=== PATIENT | female | born 1940 | race Caucasian/White ===

== ENCOUNTER 2019-04-15 14:12 | Emergency (ER) | payer MEDICARE, OTHER ==
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
[2019-04-15 14:41] LABS: ABS Basophils 0.1 10^3/ul (0-0.2); ABS Eosinophils 0.5 10^3/ul (0-0.6); ABS Lymphocytes 2.6 10^3/ul (1.0-4.8); ABS Monocytes 0.9 10^3/ul (0-0.8); ABS Neutrophils 6.5 10^3/ul (1.5-7.7); Eosinophil % 4.4 %; Hematocrit 33 % (35-47); Lymphocyte % 24.7 %; Mean Corpuscular HGB Conc 33 g/dL (31-36); Mean Corpuscular Hemoglobin 28 pg (27-31); Mean Corpuscular Volume 83 fL (80-97); Mean Platelet Volume 7.1 fL (7.4-10.4); Nucleated Red Blood Cells % 0.1; Platelet Count 295 10^3/uL (150-450); Red Blood Count 3.99 10^6 /uL (3.70-4.87); Red Cell Distribution Width 16 % (10-15); White Blood Count 10.5 10^3/uL (3.5-10.8)
[2019-04-15 14:58] LABS: Albumin 3.5 g/dL (3.2-5.2); Albumin/Globulin Ratio 1.2 (1-3); BUN/Creatinine Ratio 18.8 (8-20); C Reactive Protein 4.32 mg/L (<8.01); Calcium 9.8 mg/dL (8.6-10.3); EGFR African American 99.8 (>60); EGFR Non-African American 82.5 (>60); Globulin 2.9 g/dL (2-4); Potassium 4.4 mmol/L (3.5-5.0); Total Bilirubin 0.3 mg/dL (0.2-1.0); Total Protein 6.4 g/dL (6.4-8.9)
[2019-04-15 20:03] VITALS: BP 105/59
== END 2019-04-15 17:10 | disposition home or self-care (01) ==
LOC: ED 14:12
DX: L97.319 Non-pressure chronic ulcer of right ankle with unspecified severity (principal); Z87.891 Personal history of nicotine dependence; Z96.651 Presence of right artificial knee joint; Z79.01 Long term (current) use of anticoagulants; Z79.899 Other long term (current) drug therapy; Z88.6 Allergy status to analgesic agent; Z88.4 Allergy status to anesthetic agent; Z88.8 Allergy status to other drugs, medicaments and biological substances
CPT/HCPCS: 36415; 80053; 85025; 86140; 99283

== ENCOUNTER 2020-03-27 14:44 | Inpatient (IN) ==
[2020-03-27 16:42] LABS: ABS Basophils 0.1 10^3/ul (0-0.2); ABS Eosinophils 0.4 10^3/ul (0-0.6); ABS Lymphocytes 1.5 10^3/ul (1.0-4.8); ABS Monocytes 1.1 10^3/ul (0-0.8); ABS Neutrophils 10.2 10^3/ul (1.5-7.7); Eosinophil % 3.1 %; Hematocrit 35 % (35-47); Lymphocyte % 10.9 %; Mean Corpuscular HGB Conc 31 g/dL (31-36); Mean Corpuscular Hemoglobin 24 pg (27-31); Mean Corpuscular Volume 75 fL (80-97); Mean Platelet Volume 7.1 fL (7.4-10.4); Platelet Count 332 10^3/uL (150-450); Red Cell Distribution Width 18 % (10-15); White Blood Count 13.3 10^3/uL (3.5-10.8)
[2020-03-27 16:54] LABS: ALT 10 U/L (7-52); AST 13 U/L (13-39); Albumin/Globulin Ratio 1.1 (1-3); Alkaline Phosphatase 120 U/L (34-104); Anion Gap 9 mmol/L (2-11); BUN/Creatinine Ratio 16.2 (8-20); Blood Urea Nitrogen 12 mg/dL (6-24); C Reactive Protein 13.68 mg/L (<8.01); CO2 Carbon Dioxide 25 mmol/L (22-32); Calcium 10.1 mg/dL (8.6-10.3); Chloride 101 mmol/L (101-111); EGFR African American 91.8 (>60); EGFR Non-African American 75.9 (>60); Globulin 3.5 g/dL (2-4); Glucose 102 mg/dL (70-100); Lipase < 10 U/L (11.0-82.0); Potassium 4.5 mmol/L (3.5-5.0); Sodium 135 mmol/L (135-145); Total Protein 7.5 g/dL (6.4-8.9)
[2020-03-27] MEDS ORDERED: Morphine 2 MG/ML SYRINGE IV ONE ×2 (17:26→21:42)
[2020-03-27 18:14] LABS: Urine Appearance Cloudy; Urine Bilirubin Negative (Negative); Urine Blood 1+ (Negative); Urine Color Straw; Urine Glucose Negative (Negative); Urine Ketones Negative (Negative); Urine Nitrite Negative (Negative); Urine Protein Negative (Negative); Urine Specific Gravity 1.004 (1.010-1.030); Urine Urobilinogen Negative (Negative)
[2020-03-27 18:39] LABS: Urine Bacteria Absent (Absent); Urine Red Blood Cell Trace(0-2/hpf) (Absent); Urine Squamous Epithelial Cell Present (Absent); Urine White Blood Cell 3+(>20/hpf) (Absent)
[2020-03-27] MEDS ORDERED: Iodixanol (CONTRAST) 320 MG/ML 100 ML SDV IV ONE (19:21)
[2020-03-27] MEDS ORDERED: cefTRIAXone 1 gm/50 mL NS BAG 1 GM/50 ML BAG IV ONE (19:55)
[2020-03-27 20:13] LABS: % Iron Saturation 4 % (15-55); Iron 21 ug/dL (50-212); Total Iron Binding Capacity 490 mcg/dL (250-450); Transferrin 350 mg/dL (203-362); Unsaturated Iron Binding < 475 ug/dL
[2020-03-27 20:33] LABS: Ferritin 14.4 ng/mL (11-307)
[2020-03-27] MEDS ORDERED: Ondansetron 4 mg VIAL 2 MG/ML 2 ml VIAL IV PRN (20:37)
[2020-03-27] MEDS ORDERED: Iron Sucrose 200 MG in NS 0.9% 100 ml BAG 100 ML IVPB ONE (20:46)
[2020-03-27] MEDS ORDERED: MENTHOL TOPICAL PRN (20:56)
[2020-03-27] MEDS ORDERED: Dextrose 50% Syringe 50 ml 25 GM/50 ML SYRINGE IV PUSH PRN (20:58)
[2020-03-27] MEDS ORDERED: Azithromycin 500 mg/250 ml NS 500 MG/250 ML BAG IVPB ONE (21:00)
[2020-03-27] MEDS ORDERED: Pantoprazole Packet (NF) 40 MG GRANPKT.DR PO SCH (21:00)
[2020-03-27] MEDS ORDERED: Lactated Ringers 1000 ml BAG 1,000 ML IV SCH (22:00)
[2020-03-27] MEDS ORDERED: Piperacillin/Tazobac ADVAN 3.375 GM in NS 0.9% 100 ml BAG 100 ML IV ONE (22:42)
[2020-03-27] MEDS ORDERED: Zosyn per Pharmacy NOTE FOLLOW UP SCH (23:00)
[2020-03-28 07:05] LABS: Hematocrit 29 % (35-47); Mean Corpuscular HGB Conc 31 g/dL (31-36); Mean Corpuscular Hemoglobin 23 pg (27-31); Mean Corpuscular Volume 74 fL (80-97); Mean Platelet Volume 6.3 fL (7.4-10.4); Platelet Count 294 10^3/uL (150-450); Red Blood Count 3.88 10^6 /uL (3.70-4.87); Red Cell Distribution Width 18 % (10-15); White Blood Count 11.5 10^3/uL (3.5-10.8)
[2020-03-28 07:19] LABS: BUN/Creatinine Ratio 12.7 (8-20); Calcium 9.3 mg/dL (8.6-10.3); EGFR African American 96.3 (>60); EGFR Non-African American 79.6 (>60)
[2020-03-28] MEDS ORDERED: ZOSYN 3.375 GM Q8H per EXTENDED INFUSION IV SCH (07:30)
[2020-03-28 08:09] LABS: ABS Basophils 0.1 10^3/ul (0-0.2); ABS Eosinophils 0.1 10^3/ul (0-0.6); ABS Neutrophils 9.3 10^3/ul (1.5-7.7); Eosinophil % 1.2 %
[2020-03-28 08:10] LABS: Microcytosis 2+
[2020-03-28] MEDS ORDERED: Iron Sucrose 200 MG in NS 0.9% 100 ml BAG 100 ML IVPB ONE (09:00)
[2020-03-28] MEDS: Pantoprazole VIAL 40 MG VIAL IV SCH ×2 (09:31→21:50)
[2020-03-28] MEDS ORDERED: NS 0.9% 1000 ml BAG 1,000 ML IV SCH (18:45)
[2020-03-28] MEDS ORDERED: cefTRIAXone 1 gm/50 mL NS BAG 1 GM/50 ML BAG IVPB SCH (21:00)
[2020-03-28] MEDS: ZOSYN 3.375 GM Q8H per EXTENDED INFUSION IV SCH (21:50)
[2020-03-29] MEDS: ZOSYN 3.375 GM Q8H per EXTENDED INFUSION IV SCH ×3 (03:48→22:07)
[2020-03-29 06:23] LABS: Hematocrit 28 % (35-47); Hemoglobin 8.7 g/dL (12.0-16.0); Mean Corpuscular HGB Conc 31 g/dL (31-36); Mean Corpuscular Hemoglobin 23 pg (27-31); Mean Corpuscular Volume 75 fL (80-97); Mean Platelet Volume 7.1 fL (7.4-10.4); Platelet Count 278 10^3/uL (150-450); Red Blood Count 3.69 10^6 /uL (3.70-4.87); Red Cell Distribution Width 18 % (10-15); White Blood Count 11.9 10^3/uL (3.5-10.8)
[2020-03-29 06:36] LABS: BUN/Creatinine Ratio 17.2 (8-20); Calcium 9.5 mg/dL (8.6-10.3); EGFR African American 108.6 (>60); EGFR Non-African American 89.7 (>60); Potassium 3.8 mmol/L (3.5-5.0)
[2020-03-29] MEDS ORDERED: Iron Sucrose 200 MG in NS 0.9% 100 ml BAG 100 ML IVPB ONE (09:00)
[2020-03-29] MEDS ORDERED: fentaNYL 100 mcg/2 ml 50 MCG/ML VIAL ONE (11:04)
[2020-03-29] MEDS ORDERED: Midazolam 10 mg/10 ml VIAL 1 mg/ml 10 ml VIAL (10 mg) ONE (11:05)
[2020-03-29] MEDS: Pantoprazole VIAL 40 MG VIAL IV SCH ×2 (13:35→21:59)
[2020-03-30] MEDS: ZOSYN 3.375 GM Q8H per EXTENDED INFUSION IV SCH ×2 (05:36→12:52)
[2020-03-30 06:59] LABS: ABS Basophils 0.1 10^3/ul (0-0.2); ABS Eosinophils 0.5 10^3/ul (0-0.6); ABS Lymphocytes 1.1 10^3/ul (1.0-4.8); ABS Monocytes 0.9 10^3/ul (0-0.8); ABS Neutrophils 5.4 10^3/ul (1.5-7.7); Eosinophil % 6.8 %; Hematocrit 28 % (35-47); Lymphocyte % 14.1 %; Mean Corpuscular HGB Conc 32 g/dL (31-36); Mean Corpuscular Hemoglobin 24 pg (27-31); Mean Corpuscular Volume 74 fL (80-97); Mean Platelet Volume 6.9 fL (7.4-10.4); Platelet Count 288 10^3/uL (150-450); Red Blood Count 3.76 10^6 /uL (3.70-4.87); Red Cell Distribution Width 18 % (10-15)
[2020-03-30 10:30] VITALS: BP 94/53
[2020-03-30] MEDS: Pantoprazole VIAL 40 MG VIAL IV SCH (11:44)
== END 2020-03-30 15:05 | DRG 391 ==
LOC: ED 14:44 → MED 14:44
PROVIDERS: ADMIT Internal Medicine; ATTEND Internal Medicine

== ENCOUNTER 2021-11-02 16:19 | Observation (INO) ==
[2021-11-02 17:10] LABS: ABS Basophils 0.1 10^3/ul (0-0.2); ABS Eosinophils 0.6 10^3/ul (0-0.6); Hematocrit 42 % (35-47); Hemoglobin 13.5 g/dL (12.0-16.0); Lymphocyte % 19.1 %; Mean Corpuscular HGB Conc 33 g/dL (31-36); Mean Corpuscular Hemoglobin 31 pg (27-31); Mean Corpuscular Volume 94 fL (80-97); Nucleated Red Blood Cells % 0.1; Platelet Count 403 10^3/uL (150-450); Red Blood Count 4.44 10^6 /uL (3.70-4.87); Red Cell Distribution Width 13 % (10-15); White Blood Count 15.7 10^3/uL (3.5-10.8)
[2021-11-02 17:44] LABS: Albumin 3.7 g/dL (3.2-5.2); Albumin/Globulin Ratio 1.2 (1-3); Calcium 10.1 mg/dL (8.6-10.3); Globulin 3.2 g/dL (2-4); Potassium 4.2 mmol/L (3.5-5.0); Total Bilirubin 0.4 mg/dL (0.2-1.0); Total Protein 6.9 g/dL (6.4-8.9); eGFR CKD-EPI 93.4 (>60)
[2021-11-02 18:50] LABS: High Sensitivity Troponin 1 Hr 5 pg/mL (<15)
[2021-11-02] MEDS ORDERED: cefTRIAXone 1 gm/50 mL D5W 1 GM/50 ML BAG IV ONE (21:52)
[2021-11-03] MEDS ORDERED: Ondansetron 4 mg VIAL 2 MG/ML 2 ml VIAL IV PRN (00:54)
[2021-11-03 02:04] LABS: Magnesium 1.2 mg/dL (1.9-2.7)
[2021-11-03] MEDS ORDERED: Magnesium Sulf 4 GM/100 ML IV 4,000 MG/100 ML BAG IVPB ONE ×2 (02:30→17:34)
[2021-11-03] MEDS ORDERED: metroNIDAZOLE IV 500 MG/100ML 500 MG/100 ML BAG IVPB SCH (03:00)
[2021-11-03] MEDS ORDERED: Acetaminophen IV 1 GM/100ML 100 ML IV PRN (03:58)
[2021-11-03] MEDS ORDERED: Midazolam 10 mg/10 ml VIAL 1 mg/ml 10 ml VIAL (10 mg) ONE (07:15)
[2021-11-03] MEDS ORDERED: metroNIDAZOLE IV 500 MG/100ML - ED ONCE IVPB ONE (08:00)
[2021-11-03] MEDS ORDERED: Pantoprazole VIAL 40 MG VIAL IV SCH (09:00)
[2021-11-03 09:14] LABS: INR 1.49 (0.86-1.15)
[2021-11-03 09:18] LABS: ABS Basophils 0.1 10^3/ul (0-0.2); ABS Eosinophils 0.1 10^3/ul (0-0.6); ABS Lymphocytes 1.7 10^3/ul (1.0-4.8); ABS Monocytes 1.1 10^3/ul (0-0.8); ABS Neutrophils 14.4 10^3/ul (1.5-7.7); Eosinophil % 0.5 %; Hematocrit 40 % (35-47); Hemoglobin 13.2 g/dL (12.0-16.0); Lymphocyte % 9.6 %; Mean Corpuscular HGB Conc 33 g/dL (31-36); Mean Corpuscular Hemoglobin 31 pg (27-31); Mean Corpuscular Volume 93 fL (80-97); Platelet Count 320 10^3/uL (150-450); Red Blood Count 4.26 10^6 /uL (3.70-4.87); Red Cell Distribution Width 13 % (10-15); White Blood Count 17.3 10^3/uL (3.5-10.8)
[2021-11-03 09:30] LABS: Calcium 9.9 mg/dL (8.6-10.3); Magnesium 1.1 mg/dL (1.9-2.7); Potassium 4.1 mmol/L (3.5-5.0)
[2021-11-03] MEDS: metroNIDAZOLE IV 500 MG/100ML 500 MG/100 ML BAG IVPB SCH ×2 (17:10→23:20)
[2021-11-03] MEDS ORDERED: cefTRIAXone 1 gm/50 mL NS BAG 1 GM/50 ML BAG IVPB SCH (22:00)
[2021-11-03 22:58] LABS: Urine Appearance Clear; Urine Color Yellow
[2021-11-03 22:59] LABS: Urine Bilirubin 1+ (Small) (Negative); Urine Glucose Negative (Negative); Urine Ketones 4+ (>=160mg/dL) (Negative); Urine Nitrite Negative (Negative); Urine Protein Negative (Negative); Urine Urobilinogen 0.2 (Negative) (Negative); Urine pH 5.5 (5.0-9.0)
[2021-11-04 00:14] LABS: Urine Bacteria Absent (Absent); Urine Red Blood Cell 2+(6-10/hpf) (Absent); Urine Squamous Epithelial Cell Present (Absent); Urine White Blood Cell 3+(>20/hpf) (Absent)
[2021-11-04 05:33] LABS: ABS Basophils 0.1 10^3/ul (0-0.2); ABS Eosinophils 0.6 10^3/ul (0-0.6); ABS Lymphocytes 1.6 10^3/ul (1.0-4.8); ABS Monocytes 1.1 10^3/ul (0-0.8); ABS Neutrophils 10.8 10^3/ul (1.5-7.7); Eosinophil % 3.9 %; Hematocrit 35 % (35-47); Hemoglobin 12.2 g/dL (12.0-16.0); Lymphocyte % 11.4 %; Mean Corpuscular HGB Conc 34 g/dL (31-36); Mean Corpuscular Hemoglobin 32 pg (27-31); Mean Corpuscular Volume 93 fL (80-97); Platelet Count 267 10^3/uL (150-450); Red Blood Count 3.82 10^6 /uL (3.70-4.87); Red Cell Distribution Width 13 % (10-15); White Blood Count 14.1 10^3/uL (3.5-10.8)
[2021-11-04 05:49] LABS: Calcium 9.1 mg/dL (8.6-10.3); Magnesium 3.1 mg/dL (1.9-2.7); Potassium 3.5 mmol/L (3.5-5.0); eGFR CKD-EPI 94.8 (>60)
[2021-11-04] MEDS: metroNIDAZOLE IV 500 MG/100ML 500 MG/100 ML BAG IVPB SCH (09:10)
[2021-11-04] MEDS ORDERED: Polyethylene Glycol 3350 17 GM PACKET PO SCH (11:00)
[2021-11-04 15:35] VITALS: BP 115/55
[2021-11-04] MEDS ORDERED: cefTRIAXone 1 gm/50 mL D5W 1 GM/50 ML BAG IV SCH (22:00)
== END 2021-11-04 16:30 ==
LOC: EDHOLD 16:19 → ED 16:19 → SUATTDRO 11-03 00:54 → MED 11-03 10:58
PROVIDERS: ADMIT Student in an Organized Health Care Education/Training Program; ATTEND Internal Medicine

== ENCOUNTER 2021-12-17 15:42 | Inpatient (IN) ==
[2021-12-17 16:33] LABS: ABS Basophils 0.1 10^3/ul (0-0.2); ABS Eosinophils 0.2 10^3/ul (0-0.6); ABS Lymphocytes 1.4 10^3/ul (1.0-4.8); ABS Monocytes 0.4 10^3/ul (0-0.8); ABS Neutrophils 6.3 10^3/ul (1.5-7.7); Eosinophil % 2.6 %; Hematocrit 40 % (35-47); Hemoglobin 13.4 g/dL (12.0-16.0); Lymphocyte % 16.7 %; Mean Corpuscular HGB Conc 34 g/dL (31-36); Mean Corpuscular Hemoglobin 31 pg (27-31); Mean Corpuscular Volume 94 fL (80-97); Mean Platelet Volume 6.3 fL (7.4-10.4); Platelet Count 373 10^3/uL (150-450); Red Blood Count 4.27 10^6 /uL (3.70-4.87); Red Cell Distribution Width 16 % (10-15); White Blood Count 8.3 10^3/uL (3.5-10.8)
[2021-12-17 17:08] LABS: Albumin 3.3 g/dL (3.2-5.2); Calcium 10.1 mg/dL (8.6-10.3); Globulin 3.3 g/dL (2-4); Potassium 4.7 mmol/L (3.5-5.0); Total Bilirubin 0.3 mg/dL (0.2-1.0); Total Protein 6.6 g/dL (6.4-8.9); eGFR CKD-EPI 93.9 (>60)
[2021-12-17] MEDS ORDERED: Morphine 2 MG/ML SYRINGE IV PRN (17:54)
[2021-12-17] MEDS ORDERED: Atropine 1% (ORAL/SL) 15 ML BTL SL PRN (17:54)
[2021-12-17] MEDS ORDERED: LORazepam 2 mg VIAL 1 ml IV PUSH PRN (17:54)
[2021-12-17] MEDS ORDERED: Metoprolol Tartrate 5 mg VIAL 5 ml VIAL (1 mg/ml) IV PRN (17:56)
[2021-12-17] MEDS ORDERED: Lorazepam PYXIS KEY PRN (18:04)
[2021-12-17] MEDS: Scopolamine 1 mg/72hr PATCH TRANSDERM SCH (18:20)
[2021-12-18 12:14] VITALS: BP 136/66
[2021-12-19] MEDS: Morphine 2 MG/ML SYRINGE IV PRN (12:15)
[2021-12-20] MEDS: Morphine 2 MG/ML SYRINGE IV PRN ×2 (10:05→20:09)
[2021-12-20] MEDS: Scopolamine 1 mg/72hr PATCH TRANSDERM SCH (18:21)
[2021-12-21] MEDS: Morphine 2 MG/ML SYRINGE IV PRN ×2 (06:23→12:19)
== END 2021-12-21 13:20 | disposition hospice, home (50) | DRG 177 ==
LOC: ED 15:42 → SUATTDRO 17:50 → EDHOLD 17:50 → ICU 20:57 → MED 12-18 11:19
PROVIDERS: ADMIT Internal Medicine; ATTEND Internal Medicine